=== PATIENT | male | born 1970 | race Caucasian/White ===

== ENCOUNTER → 2018-10-11 | Day surgery (SDC) | payer OTHER ==
[~2018-10-11] MED LIST: ASPIR 8181 MG; HUMIRA40 MG/0.8 IJ; HYDROCHLOROTHIA25 MG; MAGNESIUM; METOPROLOL TART25 MG PO; MIDAZOLAM HCL 2 MG/2 ML VIAL ONE; MULTI-VITAMIN1 EACH; PROPOFOL IV EMULSION 10 MG/ML 20 ML VIAL ONE; SUPER B COMPLEX
[2018-10-11 14:45] VITALS: BP 126/92
== END | disposition home or self-care (01) ==
LOC: OR 12:21
PROVIDERS: ATTEND Internal Medicine Gastroenterology
DX: K92.1 Melena (principal); K57.30 Diverticulosis of large intestine without perforation or abscess without bleeding; K64.8 Other hemorrhoids; K59.00 Constipation, unspecified; I10 Essential (primary) hypertension; Z01.810 Encounter for preprocedural cardiovascular examination; Z71.3 Dietary counseling and surveillance; Z68.43 Body mass index [BMI] 50.0-59.9, adult; Z79.82 Long term (current) use of aspirin; Z88.8 Allergy status to other drugs, medicaments and biological substances
CPT/HCPCS: 45378; 93005; J2250; J2704

== ENCOUNTER → 2021-02-14 | Outpatient (CLI) | payer OTHER ==
[~2021-02-14] MED LIST changes: -MIDAZOLAM HCL 2 MG/2 ML VIAL ONE; -PROPOFOL IV EMULSION 10 MG/ML 20 ML VIAL ONE
== END ==
LOC: RAD 14:21
PROVIDERS: ATTEND Family Medicine
DX: M79.89 Other specified soft tissue disorders (principal); Z91.89 Other specified personal risk factors, not elsewhere classified
CPT/HCPCS: 93971